=== PATIENT | female | born 1985 | race Hispanic/Latino ===

== ENCOUNTER 2018-01-09 10:08 | Observation (INO) | payer BC ==
[2018-01-09 10:18] VITALS: BMI 28.3
--- NOTE | 2018-01-09 10:31 | ED PDOC ---
Arrival/HPI - General Chief Complaint: Chest Pain Time Seen by Provider: 01/09/18 10:17 Historian: Patient - History of Present Illness Narrative History of Present Illness (Text): 01/09/18 10:40 32 year old female, with no significant PMH, who presents to the emergency department complaining of intermittent left sided chest pain rating 7 out 10. Patient reports chest pain is associated with shortness of breath, lightheadedness, and diaphoresis. Patient decided to come to emergency department due to radiating pain to the left arm described as numbness and tingling sensation. pt also noted the chest pain lasting longer in duration as well as more intense pain; She denies fever, chills, nausea, vomiting, diarrhea , abdominal pain, lower extremity swelling, or other complaints. Patient notes she was set to follow up with Dr. Valle, who was referred to her by her PCP. pt is here for further eval. PMD: Dr. Pavon Patient's family history includes father with CAD, who has first MD <50 years old and brother at 35 year old (cardiac complications) Patient's social history includes smoking a pack of cigarettes per week, marijuana substance use, and occasional drinking. Time/Duration: 1 week Symptom Onset: Gradual Symptom Course: Intermittent Quality: Tightness Severity Level: 7 Activities at Onset: Rest Context: Home Past Medical History - Provider Review Nursing Documentation Reviewed: Yes - Travel History Have you recently traveled outside [place] w/in the past 3 mons?: No - Past History Past History: No Previous - Infectious Disease Hx of Infectious Diseases: None - Tetanus Immunization Tetanus Immunization: Unknown - Reproductive Menopause: No Currently : Unknown - Psychiatric Hx Substance Use: No Family/Social History - Physician Review Nursing Documentation Reviewed: Yes Family/Social History: CAD/MD (father <50 year old ) Smoking Status: Current Some Days Smoker Hx Alcohol Use: Yes Frequency of alcohol use: Socially Hx Substance Use: No Hx Substance Use Treatment: No Allergies/Home Meds Allergies/Adverse Reactions: Allergies No Known Allergies Allergy (Verified 01/09/18 10:19) Review of Systems - Review of Systems Constitutional: absent: Fevers Eyes: Normal ENT: absent: Sinus Congestion Respiratory: SOB Cardiovascular: Chest Pain (left sided chest pain radiates to arm (numbness and tingling sensation) ) Gastrointestinal: absent: Abdominal Pain, Nausea, Vomiting Genitourinary Female: absent: Dysuria Musculoskeletal: absent: Back Pain Skin: absent: Rash Neurological: Dizziness (lightheadedness). absent: Headache Endocrine: Diaphoresis Hemo/Lymphatic: Normal Psychiatric: Normal Physical Exam - Physical Exam Narrative Physical Exam (Text): 01/09/18 General: alert/awake, GCS = 15, oriented x 3, resting in bed, uncomfortable, cooperative, interactive; NAD (+) slightly anxious, no acute distress Head: NC/AT EYE: PERRLA, EOMI, sclera anicteric, no nystagmus, no photophobia; visual field intact b/l Facial: WNL Oral: uvula/tongue are midline, no exudate/lesions, no drooling/stridor, no dysphonia; intact dentitions NECK: intact ROM, no midline tenderness, no nuchal rigidity, no meningeal signs ; no step off Chest: CTA b/l, no w/r/r; no tachypenia, no accessory muscle use noted Chest Wall: no crepitus, no lesions, no gross deformities, no focal tenderness Cardiac: +S1, +S2, no m/r/r, no tachycardia Abdominal: +BS, soft/nd/nt, well nourished patient; no masses/rebound/guarding/ rigidity; no mccartney's sign, no mcburney's point tenderness Extremities: intact ROM, strength 5/5 grossly intact in all limbs, neurovasc intact b/l; + ambulatory; reflex +2/2; no pitting edema noted b/l, no nuris's sign b/l BACK: no step off, no midline tenderness, NO crepitus, no gross deformities noted; Intact ROM SKIN: cap refill < 1 sec, no ulcerations, no petechiae, no rashes NEURO: CNII-XII WNL, no facial asymmetries, no slurr speech, oriented x 3 NIH stroke scale ~ 0 Psych: normal insight, normal affect; follows command with ease Vital Signs Reviewed: Yes Vital Signs Temp Pulse Resp BP Pulse Ox 01/09/18 12:39 83 18 114/76 98 01/09/18 11:29 71 18 121/83 95 01/09/18 10:08 98.1 F 86 18 144/85 97 Temperature: Afebrile Blood Pressure: Normal Pulse: Regular Respiratory Rate: Normal Appearance: Positive for: Well-Appearing, Non-Toxic, Uncomfortable Pain Distress: None Mental Status: Positive for: Alert and Oriented X 3 - Systems Exam Head: Present: Atraumatic, Normocephalic Medical Decision Making ED Course and Treatment: 01/09/18 Impression: 32 year old female who is slightly anxious, complaining of left sided chest pain associated with shortness of breath, diaphoresis, and lightheadedness. Differential Diagnosis included but are not limited to: r/o ACS; unlikely aneurysm; low risk pulmonary embolism Plan: -- EKG -- Chest X-ray -- Labs -- Urinalysis -- Aspirin, Nitroglycerin and Sodium Chloride -- Reassess and disposition Progress Notes: 01/09/18 12:25pm pt is doing well pt is comfortable improved vital signs pt states her chest pain/pressure is much better/improved, pain rated at 1-2/10 currently given pt's medical complaints/extensive family hx of ACS; will recommend patient for admission/observation 1235pm paged Dr Schumacher Spoke to Rose, made aware, agrees with admission/observation; to consult Dr Valle (cards) vital signs: WNL pt is made aware of her medical results pt agrees with admission/observation Re-evaluation Time: 12:30 Reassessment Condition: Re-examined, Improved - Lab Interpretations Lab Results: 01/09/18 11:20 01/09/18 11:20 Lab Results 01/09/18 12:30: Urine HCG, Qual Negative 01/09/18 11:20: Urine Color Yellow, Urine Appearance Clear, Urine pH 7.0, Ur Specific [place] 1.020, Urine Protein Negative, Urine Glucose (UA) Negative, Urine Ketones Negative, Urine Blood Negative, Urine Nitrate Negative, Urine Bilirubin Negative, Urine Urobilinogen 0.2, Ur Leukocyte Esterase Trace H, Urine RBC 0 - 2, Urine WBC 2 - 5, Ur Epithelial Cells 4 - 5, Urine Bacteria Many , Urine Other [place] 01/09/18 11:20: Sodium 141, Potassium 4.4, Chloride 105, Carbon Dioxide 24, Anion Gap 16, BUN 18, Creatinine 0.7, Est GFR ( Amer) > 60, Est GFR (Non- Af Amer) > 60, Random Glucose 96, Calcium 9.7, Total Bilirubin 0.5, AST 27, ALT 29, Alkaline Phosphatase 56, Troponin I < 0.01, Total Protein 7.5, Albumin 4.6, Globulin 2.9, Albumin/Globulin Ratio 1.6, Lipase 254 01/09/18 11:20: PT 11.9, INR 1.03, APTT 32.5, D-Dimer, Quantitative < 200 01/09/18 11:20: WBC 6.7, RBC 4.72, Hgb 13.8, Hct 40.4, MCV 85.6, MCH 29.2, MCHC 34.2, RDW 13.3, Plt Count 255, MPV 10.1, Gran % 68.3 H, Lymph % (Auto) 23.7, [place] % (Auto) 5.6, Eos % (Auto) 2.1, Baso % (Auto) 0.3, Gran # 4.60, Lymph # ( Auto) 1.6, [place] # (Auto) 0.4, Eos # (Auto) 0.1, Baso # (Auto) 0.02 I have reviewed the lab results: Yes Interpretation: All labs normal - RAD Interpretation Narrative RAD Interpretations (Text): 01/09/18 12:47 Chest X-Ray - NAD, as read by me Radiology Orders: 01/09/18 10:45 CHEST PORTABLE [RAD] Stat Release Engineer: ED Physician - EKG Interpretation EKG Interpretation (Text): 01/09/18 12:47 NSR at 75 bpm, normal axis, no ectopy, inverted T in leads III, no st changes, NORMAL EKG; no old ekg to compare with Interpreted by ED Physician: Yes Type: 12 lead EKG Comparison: No previous EKG avail. - Medication Orders Current Medication Orders: Sodium Chloride (Sodium Chloride 0.9%) 1,000 mls @ 100 mls/hr IV .Q10H DMITRY Last Admin: 01/09/18 11:19 Dose: 100 mls/hr eMAR Start Stop Document 01/09/18 11:19 SRE (Rec: 01/09/18 11:20 SRE [id number]) Intravenous Solution Start Date 01/09/18 Start Time 11:20 Discontinued Medications Aspirin (Aspirin) 325 mg PO STAT STA Stop: 01/09/18 10:49 Last Admin: 01/09/18 11:20 Dose: 325 mg Nitroglycerin (Nitro-Bid 2% Oint) 1 ea TOP STAT STA Stop: 01/09/18 10:49 Last Admin: 01/09/18 11:20 Dose: 1 ea - Scribe Statement The provider has reviewed the documentation as recorded by the Jeremiah Miller Provider Scribe Attestation: All medical record entries made by the Scribe were at my direction and personally dictated by me. I have reviewed the chart and agree that the record accurately reflects my personal performance of the history, physical exam, medical decision making, and the department course for this patient. I have also personally directed, reviewed, and agree with the discharge instructions and disposition. Disposition/Present on Arrival - Present on Arrival Any Indicators Present on Arrival: No History of DVT/PE: No History of Uncontrolled Diabetes: No Urinary Catheter: No History of Decub. Ulcer: No History Surgical Site Infection Following: None - Disposition Have Diagnosis and Disposition been Completed?: Yes Diagnosis: Chest pain with low risk for cardiac etiology Disposition: HOSPITALIZED Disposition Time: 12:35 Patient Plan: Admission, Observation, Telemetry Patient Problems: Current Active Problems Problem Status Onset Chest pain with low risk for cardiac etiology Acute Condition: STABLE Discharge Instructions (ExitCare): Chest Pain (ED) Print Language: TAJIK Forms: [employer] ([employer]) (Jordanian)
[2018-01-09] MEDS ORDERED: Nitroglycerin 2% Ointment Foilpak UD TOP STA (10:48)
[2018-01-09] MEDS: Sodium Chloride 0.9% 1,000 ML IV SCH ×2 (11:19→22:03)
[2018-01-09 11:38] LABS: BASO # 0.02 K/mm3 (0.0-2.0); BASO % 0.3 % (0.0-3.0); EOS # 0.1 (0.0-0.7); EOS % 2.1 % (1.5-5.0); GRAN # 4.6 (1.4-6.5); GRAN % 68.3 % (50.0-68.0); HEMOGLOBIN 13.8 g/dL (12.0-16.0); LYMPH # 1.6 (1.2-3.4); LYMPH % 23.7 % (22.0-35.0); MEAN CELL VOLUME 85.6 fl (80.0-105.0); MEAN CORPUSCULAR HEMOGLOBIN 29.2 pg (25.0-35.0); MEAN CORPUSCULAR HGB CONC 34.2 g/dl (31.0-37.0); MEAN PLATELET VOLUME 10.1 fl (7.0-11.0); MONO # 0.4 (0.1-0.6); MONO % 5.6 % (1.0-6.0); RBC 4.72 10^6/uL (3.5-6.1); RED CELL DISTRIBUTION WIDTH 13.3 % (11.5-14.5); WHITE BLOOD COUNT 6.7 10^3/ul (4.5-11.0)
[2018-01-09 11:39] LABS: URINE BILIRUBIN NEGATIVE (NEGATIVE); URINE BLOOD NEGATIVE (NEGATIVE); URINE GLUCOSE (UA) NEGATIVE (NEGATIVE); URINE LEUKOCYTE ESTERASE TRACE Leu/uL (NEGATIVE); URINE PROTEIN NEGATIVE mg/dL (<30 mg/dL); URINE UROBILINOGEN 0.2 E.U./dL (<1 E.U./dL)
[2018-01-09 11:42] LABS: ALB/GLOB RATIO 1.6 (1.1-1.8); ALBUMIN 4.6 g/dL (3.0-4.8); ALT/SGPT 29 U/L (7-56); AST/SGOT 27 U/L (14-36); BLOOD UREA NITROGEN 18 mg/dL (7-21); CALCIUM 9.7 mg/dL (8.4-10.5); GFR AFRICAN-AMERICAN > 60; GFR NON-AFRICAN AMERICAN > 60; LIPASE 254 U/L (23-300)
[2018-01-09 11:43] LABS: URINE COLOR YELLOW (YELLOW)
[2018-01-09 11:44] LABS: URINE APPEARANCE CLEAR (CLEAR)
[2018-01-09 11:46] LABS: INR 1.03; PARTIAL THROMBOPLASTIN TIME 32.5 Seconds (25.1-36.5); PROTHROMBIN TIME 11.9 SECONDS (9.4-12.5)
[2018-01-09 11:48] LABS: URINE BACTERIA MANY (NEG); URINE RBC 0 - 2 /hpf (0-2)
[2018-01-09 11:51] LABS: D DIMER < 200 ng/mL
[2018-01-09 11:53] LABS: TROPONIN I < 0.01 ng/mL
--- NOTE | 2018-01-09 12:57 | CARD ---
APPROVED REPORT Date of service: 01/09/2018 EKG Measurement Heart [id number] <Conclusion> Normal sinus rhythm Normal ECG
--- NOTE | 2018-01-09 13:04 | RAD ---
Date of service: 01/09/2018 HISTORY: chest pain COMPARISON: No prior. FINDINGS: LUNGS: No active pulmonary disease. PLEURA: No significant pleural effusion identified, no pneumothorax apparent. CARDIOVASCULAR: Normal. OSSEOUS STRUCTURES: No significant abnormalities. VISUALIZED UPPER ABDOMEN: Normal. OTHER FINDINGS: None. IMPRESSION: No active disease.
[2018-01-09 21:23] LABS: B-TYPE NATRIURETIC PEPTIDE 27.2 pg/mL (0-450)
[2018-01-09 21:27] LABS: TROPONIN I < 0.01 ng/mL
[2018-01-09] MEDS ORDERED: Pneumococcal 23-Valent Vaccine IM ONE (22:42)
[2018-01-10 00:14] LABS: BARBITURATES, UR NEGATIVE (NEGATIVE); BENZODIAZEPINES, UR NEGATIVE (NEGATIVE); OPIATES, UR NEGATIVE (NEGATIVE); PHENCYCLIDINE, UR NEGATIVE (NEGATIVE)
--- NOTE | 2018-01-10 05:21 | CON ---
Copied To: Felipe Valle MD Attending MD: Felipe Valle MD DATE: 01/09/2018 SERVICE: CARDIOLOGY REASON FOR CONSULTATION AND FOLLOWUP: Chest pain, cardiac evaluation. BRIEF CLINICAL HISTORY: A 32-year-old female with no significant past medical history admitted with one week history of the chest pain off and on, initially thought that it is a gastritis so patient started taking Tums, but it relieved. Chest pain is retrosternal type feeling and radiate to the left arm and shoulder. PAST MEDICAL HISTORY: Nothing significant history. PAST SURGICAL HISTORY: History of breast biopsy many years ago. SOCIAL HISTORY: Ex-smoker, now is taking electronic cigarette, used to smoke, start at the age of 14, one pack off and on till recently when the patient changed to electronic cigarette. History of alcohol abuse, two cans of beer, every now and then, probably 5 to 6 in a week with her partners. Also, history of marijuana use also. REVIEW OF SYSTEMS: As per HPI. FAMILY HISTORY: Significant for coronary artery disease. Father had an ME between the age of 45 to 50 and multiple coronary artery bypass and stent. Brother had sudden cardiac at the age of 35. PHYSICAL EXAMINATION: VITAL SIGNS: Height of the patient 5 feet 5 inch, weight of the patient 170 pounds, body mass index 28.3 kg/m2. Rest of the vitals, temperature afebrile, heart rate 74, blood pressure 106/72. HEENT: PERRLA. Extraocular muscles intact. NECK: Supple. No carotid bruit, thyromegaly. CHEST: Clear to auscultation. HEART: S1 and S2 regular. ABDOMEN: Soft. EXTREMITIES: Clubbing and cyanosis negative. LABORATORY DATA: WBC 6.7, hemoglobin 13, hematocrit 40.4, platelet count 255. Chemistry shows sodium 141, potassium 4.4, chloride 105, carbon dioxide 24, anion gap of 16, BUN 18, creatinine 0.7. DIAGNOSTIC DATA: EKG shows normal sinus, no acute ST-T wave changes noted. IMPRESSION AND PLAN: Though chest pain appears atypical, we will give the multiple reason to coronary artery disease including father and brother had the sudden cardiac . Suggest echo , stress test, lipid profile, TSH, hemoglobin A1c. Followup serial CPK, also urine for toxic screen. Further recommendation depending upon hospital course. We will follow with you. We will discontinue Nitropaste because patient is having terrible headache, throbbing pain and cannot see straight because of this. We will also order beta hCG to rule out . Thank you, for providing us the opportunity in taking care of the patient, Aimee Walker. Felipe Valle MD
[2018-01-10 07:21] LABS: BASO # 0.02 K/mm3 (0.0-2.0); BASO % 0.3 % (0.0-3.0); EOS # 0.2 (0.0-0.7); EOS % 3.6 % (1.5-5.0); GRAN # 3.72 (1.4-6.5); GRAN % 56.6 % (50.0-68.0); LYMPH # 2.1 (1.2-3.4); LYMPH % 31.6 % (22.0-35.0); MEAN CELL VOLUME 86.3 fl (80.0-105.0); MEAN CORPUSCULAR HEMOGLOBIN 28.7 pg (25.0-35.0); MEAN CORPUSCULAR HGB CONC 33.2 g/dl (31.0-37.0); MEAN PLATELET VOLUME 10.1 fl (7.0-11.0); MONO # 0.5 (0.1-0.6); MONO % 7.9 % (1.0-6.0); RBC 4.53 10^6/uL (3.5-6.1); RED CELL DISTRIBUTION WIDTH 13.4 % (11.5-14.5); WHITE BLOOD COUNT 6.6 10^3/ul (4.5-11.0)
[2018-01-10] MEDS: Sodium Chloride 0.9% 1,000 ML IV SCH ×3 (07:30→18:45)
[2018-01-10 07:39] LABS: ALB/GLOB RATIO 1.4 (1.1-1.8); ALBUMIN 4.2 g/dL (3.0-4.8); ALT/SGPT 37 U/L (7-56); AST/SGOT 23 U/L (14-36); BLOOD UREA NITROGEN 14 mg/dL (7-21); GFR AFRICAN-AMERICAN > 60; GFR NON-AFRICAN AMERICAN > 60; HDL CHOLESTEROL 42 mg/dL (29-60)
[2018-01-10 07:44] LABS: LDL CHOLESTEROL 95 mg/dL (0-129)
--- NOTE | 2018-01-10 09:03 | CP.PCM.PN ---
Subjective - Date & Time of Evaluation Date of Evaluation: 01/10/18 Time of Evaluation: 06:15 - Subjective Subjective: easily awaken, no distress, denies chest pain Reason for consultation and follow up: Cardiac evaluation of chest pain, gastritis Seen and examined by me and Dr. Valle Objective - Vital Signs/Intake and Output Vital Signs (last 24 hours): Temp Pulse Resp BP Pulse Ox 98.6 F 65 22 121/65 99 01/10/18 06:00 01/10/18 06:00 01/10/18 06:00 01/10/18 06:00 01/10/18 06:00 Intake and Output: 01/10/18 01/10/18 06:59 18:59 Intake Total 750 Output Total 600 Balance 150 - Medications Medications: Current Medications Sodium Chloride (Sodium Chloride 0.9%) 1,000 mls @ 100 mls/hr IV .Q10H DMITRY Last Admin: 01/10/18 07:30 Dose: Not Given - Labs Labs: 01/10/18 06:30 01/10/18 06:30 PT 11.9 SECONDS (9.4-12.5) 01/09/18 11:20 INR 1.03 01/09/18 11:20 APTT 32.5 Seconds (25.1-36.5) 01/09/18 11:20 - Constitutional Appears: No Acute Distress - Eye Exam Eye Exam: Normal appearance - ENT Exam ENT Exam: Mucous Membranes Moist - Respiratory Exam Respiratory Exam: Clear to Ausculation Bilateral, NORMAL BREATHING PATTERN - Cardiovascular Exam Cardiovascular Exam: REGULAR RHYTHM, +S1, +S2 - GI/Abdominal Exam GI & Abdominal Exam: Soft, Normal Bowel Sounds - Extremities Exam Extremities Exam: Normal Capillary Refill - Neurological Exam Neurological Exam: Alert, Awake, Oriented x3 - Psychiatric Exam Psychiatric exam: Normal Affect - Skin Skin Exam: Dry, Warm Assessment and Plan - Assessment and Plan (Free Text) Assessment: A 32 year old female who came in to the ER due to chest pain off and on radiating to left arm. Initially thought to be due to gastritis but no relief. Current smoker, alcohol abuse, history of marijuana use. Strong family history. Father had an OR between 45 to 50 years old and multiple stents and coronary artery bypass. Brother had sudden cardiac at 35 years old. Atypical chest pain,troponin normal, for stress test and echo. Plan: For Stress test and Echo today Denies chest pain now Negative test Smoking cessation Will start Nicoderm patch Will start Aspirin Continue current medications Continue current treatment Will follow up Plan and treatment discussed with Dr. Valle
--- NOTE | 2018-01-10 15:20 | CARD ---
APPROVED REPORT Date of service: 01/10/2018 EXAM: Two-dimensional and M-mode echocardiogram with Doppler and color Doppler. INDICATION Chest Pain 2D DIMENSIONS Left Atrium (2D)3.0 (1.6-4.0cm)IVSd1.0 (0.7-1.1cm) LVDd3.7 (3.9-5.9cm)PWd0.9 (0.7-1.1cm) LVDs2.5 (2.5-4.0cm)FS (%) 34.0 % LVEF (%)63.9 (>50%) M-Mode DIMENSIONS Aortic Root2.50 (2.2-3.7cm)Aortic Cusp Exc.1.70 (1.5-2.0cm) Aortic Valve AoV Peak Fkewdwnj698.0cm/Ellis Peak GR.5mmHg Mitral Valve MV E Fyuyoxqz21.5cm/sMV A Knavchzw66.7cm/sE/A ratio1.2 TDI E/Lateral E'0.0E/Medial E'0.0 Tricuspid Valve TR Peak [id number]/sRAP [id number] Peak Gr.5mmHg [id number] LEFT VENTRICLE The left ventricle is normal size. There is normal left ventricular wall thickness. The left ventricular function is normal. The left ventricular ejection fraction is within the normal range. There is normal LV segmental wall motion. RIGHT VENTRICLE The right ventricle is normal size. The right ventricular systolic function is normal. ATRIA The left atrium size is normal. The right atrium size is normal. The interatrial septum is intact with no evidence for an atrial septal defect. AORTIC VALVE The aortic valve is normal in structure. No aortic regurgitation is present. There is no aortic valvular stenosis. MITRAL VALVE The mitral valve is normal in structure. There is no mitral valve regurgitation noted. TRICUSPID VALVE The tricuspid valve is normal in structure. There is no tricuspid valve regurgitation noted. PULMONIC VALVE The pulmonary valve is normal in structure. There is mild pulmonic valvular regurgitation. GREAT VESSELS The aortic root is normal in size. The IVC is normal in size and collapses >50% with inspiration. PERICARDIAL EFFUSION There is no pleural effusion. There is no pericardial effusion. <Conclusion> Normal Echo study.
--- NOTE | 2018-01-10 19:18 | HP ---
Copied To: Marcial Pavon MD Attending MD: Marcial Pavon MD HISTORY OF PRESENT ILLNESS: A 32-year-old white female with a strong family history of CAD. Father and her brother at age 35 of sudden cardiac . The patient has no history of hypertension. She is a smoker. She has no history of high cholesterol. She is nondiabetic. She has recently gained some weight. She is having some nonspecific chest pain and also questionable heartburn. She had an ultrasound to rule out gallstones in the past. She came to the hospital. First and second set of troponins are negative. The patient will have a stress test and echo, was seen by Dr. Valle in consultation. PHYSICAL EXAMINATION: GENERAL: Shows a well-developed, well-nourished white female, in no apparent distress. HEENT: Normal. HEART: Regular sinus rhythm. NECK: Carotids are without bruits. ABDOMEN: Soft. Bowel sounds are normoactive. CHEST: Clear to auscultation and percussion. EXTREMITIES: Without cyanosis, clubbing, or edema. NEUROLOGIC: Grossly intact. IMPRESSION: Nonspecific chest pain in a 32-year-old white female with strong family history of coronary artery disease, rule out coronary artery disease. Marcial Pavon MD
--- NOTE | 2018-01-10 21:01 | CARD ---
APPROVED REPORT Date of service: 01/10/2018 Protocol: RAFI Test Type: Sestamibi Stress Test Attending Physician: Dr. Felipe Man Referring Physician: Dr. Marcial Pavon Test Indications: Chest Pain Height:5 ft 5 in Weight:170lbs Medications: None Medical History: 32 y/o female. Hx of asthma,palptiations,smoker, family hx of heart disease. Target HR: 186 bpm Resting ECG: RSR. Resting Heart Rate: 79 bpm Resting Blood Pressure: 110/80mmHg Submaximum (85%): 158 bpm POST EXERCISE Reason for Termination: Fatigue Target HR: No Max HR: 160 bpm 86% of Maximum Predicted HR: 186 bpm Exercise duration: 09:00 min:sec, 3 Stage Exercise capacity: 10.4METs Max Blood Pressure: 152/80mmHg Blood Pressure response to exercise: normal resting BP - appropriate response Heart Rate response to exercise: appropriate Chest Pain: No, none Angina index: 0 Arrhythmia: No, none ST Change: No, none Deviation: 0 mm TEST SUMMARY [id number]/.0. [id number]/80.0. PRETESTHYPERV.00:[id number]/80.0. PRETESTWARM-UP02:[id number]/.0. EXERCISESTAGE 103:[id number]/84.0. EXERCISESTAGE 203:[id number]/80.0. EXERCISESTAGE 303:[id number]/80.0. [id number]/80.0. INTERPRETATION Stress EKG Conclusion: MYOVIEW NUCLEAR STRESS TEST STOPPED AFTER 9 MINUTES OF RAFI PROTOCOL DUE TO FATIGUE. PATIENT ACHIEVED 86% OF PREDICTED HEART RATE. NO CHEST PAIN. NO ST-T CHANGES. NUCLEAR SCAN REPORT PENDING. Signed by Felipe Man Electronically Approved: 01/10/2018 12:09:07 EXAM: Myocardial Perfusion REST/STRESS Stress Test Type: Exercise Treadmill Imaging Protocol The imaging protocol used to acquire images was Rest Tc-99m/stress Tc-99m 1 day Rest Spect myocardial perfusion imaging was performed in supine position 40 minutes following the injection of 10.3 mCi of Tc-99 Myoview. At peak stress, the patient was injected intravenously with 30.3mCi of Tc-99 tetrofosmin after an exercise time of 9 minutes and 0 seconds. Gated Stress Spect was performed 50 minutes after intravenous Tc-99 Myoview injection. The images were gated to evaluate regional wall motion and calculate ventricular ejection fraction.Images were reconstructed using backfilter projection method in short horizontal and verticle long axis. Spect slices were generated. LV Perfusion The quality of the study is good. The left ventricle is normal in size. The right ventricle is unremarkable. The lung uptake is within normal limits. The distribution of tracer reveals normal uptake pattern throughout the LV myocardium on the stress study. The rest myocardial perfusion study shows no significant change. Wall Motion Wall motion study shows good contractility of the left ventricle. LVEF = 71%. Conclusion 1. Normal SPECT myocardial perfusion study. 2. Normal gated wall motion of the left ventricle.
[2018-01-10 21:52] VITALS: BP 126/81; PULSE 82; RESP 16; TEMP 98.8; O2SAT 98
--- NOTE | 2018-01-11 15:27 | DS ---
Copied To: Marcial Pavon MD Attending MD: Marcial Pavon MD HISTORY OF PRESENT ILLNESS: A 32-year-old white female admitted to the hospital with nonspecific chest pain versus abdominal pain. The patient was seen in consultation by Dr. Valle. The patient underwent a stress test and an echocardiogram. The echocardiogram showed as negative. Stress test was negative. The patient was able to be seen by GI, placed on PPIs. The patient was able to be discharged home in improved condition. The myocardial stress test was done on the day of discharge and there is a normal SPECT myocardial perfusion study, normal gated wall motion of left ventricle. The patient will be discharged home in improved condition. FINAL DISCHARGE DIAGNOSES: Nonspecific chest pain, possible gastritis. Marcial Pavon MD
== END 2018-01-10 21:57 | disposition home or self-care (01) ==
LOC: ED 10:08 → ERH 12:28 → 2RNO 18:04
PROVIDERS: ADMIT Internal Medicine; ATTEND Internal Medicine
DX: R07.89 Other chest pain (principal); F10.10 Alcohol abuse, uncomplicated; F17.290 Nicotine dependence, other tobacco product, uncomplicated; I25.10 Atherosclerotic heart disease of native coronary artery without angina pectoris; K29.70 Gastritis, unspecified, without bleeding; Z82.41 Family history of sudden cardiac death; Z82.49 Family history of ischemic heart disease and other diseases of the circulatory system
CPT/HCPCS: 36415; 71045; 78452; 80053; 80061; 81001; 83036; 83690; 83735; 83880; 84100; 84443; 84484; 84702; 84703; 85025; 85378; 85610; 85730; 87086; 93005; 93017; 93306; 99284; A9502; G0378; G0480; J7030